=== PATIENT | male | born 1995 | race Hispanic/Latino ===

== ENCOUNTER 2024-08-28 17:17 | Emergency (ER) | payer SELFPAY ==
--- NOTE | 2024-08-28 17:19 | ED.SKABFB ---
HPI - Skin/Abscess/Foreign Bdy General Chief complaint: Skin/Abscess/Foreign Body Stated complaint: belly button/pressure Time Seen by Provider: 08/28/24 17:19 Source: patient Mode of arrival: ambulatory Limitations: no limitations History of Present Illness HPI narrative: Rudy is a 29-year-old male patient presenting to the clinic today with complaints of belly button pain. He reports that he was messing with his blood but today and noticed a hard piece of possible dirt and the belly button and was attempting to get it out. He reports that this causes some pain in umbilicus area. Review of Systems Review of Systems: Pertinent positives per HPI. Patient denies any fever, chills, rash, headache, visual changes, dizziness, cough, runny nose, sore throat, shortness of breath, chest pain, palpitations, nausea, vomiting, diarrhea, constipation, abdominal pain, or any urinary issues. PMFSH Comments At the time of my signature, I reviewed and agree with the nursing past medical, surgical, social, and family history. There is no relevant family history pertinent to the patient complaint. Exam Narrative: General: Well-developed, well nourished, in no apparent distress Head: Normocephalic, atraumatic. Cardio: Regular rate and rhythm, s1 and s2 normal, no murmur appreciated. Resp: Clear to auscultation bilaterally, no rhonchi, rales, wheezing or rubs. Integumentary: [place], warm, and dry, brown/black piece of dirt in the umbilicus that is dry and hard. No sign of infection or redness or swelling. No umbilical hernia Course Course Emergency Course: Portions of this record may have been created with voice recognition software. Level of Care: Express Care Visit Vital Signs Vital signs: Vital Signs Temperature 37.3 C 08/28/24 17:28 Pulse Rate 77 08/28/24 17:28 Respiratory Rate 16 08/28/24 17:28 Blood Pressure 140/73 08/28/24 17:28 Pulse Oximetry 100 08/28/24 17:28 Oxygen Delivery Room Air 08/28/24 17:28 Temperature 37.3 C 08/28/24 17:28 Pulse Rate 77 08/28/24 17:28 Respiratory Rate 16 08/28/24 17:28 Blood Pressure 140/73 08/28/24 17:28 Pulse Oximetry 100 08/28/24 17:28 Oxygen Delivery Room Air 08/28/24 17:28 Vital signs reviewed MDM - Skin/Abscess/Foreign Bdy MDM Narrative Medical decision making narrative: At the time of visit patient is resting comfortably on the exam table. Patient appears to be nontoxic. Plan: Recommend using Vaseline to soften up the dirt and clean out and dry umbilicus as discussed. Supportive measures were discussed with the patient and they voiced understanding discharge instructions and agrees to treatment plan. Return precautions reviewed Differential Diagnosis Differential diagnosis: Likely abscess of skin or subcutaneous tissue, viral exanthem, dermatophytosis, urticaria, herpes zoster, allergic reaction to drug, cellulitis, eczema, insect bites, impetigo and contact dermatitis Discharge Plan Discharge Clinical Impression: Umbilical pain Patient Disposition: Home, Self-Care Condition: Stable Instructions: Antibiotic Form Additional Instructions: No sign of umbilical hernia No sign of umbilical infection Keep umbilical area clean and dry May apply Vaseline in the belly button to soften up the dirt May clean with a Q-tip and now the watson and then used a Q-tip to dry the blood but Follow-up with your doctor as needed Follow-up/Referrals: PHYSICIAN,[employer]CH[employer]IC [Primary Care Provider] - Time of Disposition: 17:36 Quality NIHSS Nursing Documentation ED NIHSS nursing documentation: reviewed/agree
[2024-08-28 17:28] VITALS: BP 140/73; PULSE 77; RESP 16; TEMP 37.3; O2SAT 100
== END 2024-08-28 17:38 | disposition home or self-care (01) ==
PROVIDERS: Emergency Provider Nurse Practitioner Family
DX: R10.33 Periumbilical pain (principal)
CPT/HCPCS: 99211; G0463